=== PATIENT | male | born 1980 | race African-American/Black ===

== ENCOUNTER 2023-09-01 02:29 | Observation (INO) ==
--- NOTE | 2023-09-01 02:50 | Emergency Department Note ---
History of Present Illness General Chief complaint: Hypertension Stated complaint: HEADACHE AND HIGH BP Time Seen by Provider: 09/01/23 02:43 History of Present Illness Maximum Pain Intensity: 3 This 42-year-old male that was seen here earlier today return to the ER for ongoing hypertension and headache. Patient denies chest pain, dyspnea, numbness, tingling or any other medical complaints. Patient had laboratory testing and CAT scan earlier. Home Medications Medication Instructions Recorded Confirmed Type atorvastatin 20 mg tablet 20 mg PO HS 06/14/22 09/01/23 History metformin 500 mg tablet,extended 1,000 mg PO HS 06/14/22 09/01/23 History release 24 hr amlodipine 5 mg-benazepril 20 mg 1 cap PO DAILY #30 caps 08/31/23 09/01/23 Rx capsule Allergies Allergy/AdvReac Type Severity Reaction Status Date / Time grass pollen-perennial rye, Allergy Intermediate hives Verified 08/31/23 20:43 standar Past Med/Surg History Problem List (Updated 09/01/23 @ 02:50 by Nicole Manzanares PA-C) Rhinovirus infection (Acute) Hypertension (Chronic) Prediabetes Closed fracture of fifth metatarsal bone of left foot (Acute) Social History Smoking Status: Never smoker Preferred Language: Dominican Feels Safe at Home: Yes Review of Systems A total of 10 systems reviewed and were otherwise negative Physical Exam Vital Signs Vital Signs - 24 hr 09/01/23 02:37 09/01/23 02:52 09/01/23 02:58 Temperature 36.6 C Temperature Source Temporal Artery Scan Pulse Rate 96 H 88 Pulse Rate [Apical] 95 H Pulse Rate from SpO2 Sensor Pulse Rhythm [Apical] Regular Respiratory Rate 18 17 Respiratory Effort / Characteristics Non-Labored Spontaneous Non-Labored Spontaneous Respiratory Depth Normal Normal Respiratory Pattern Regular Regular Blood Pressure 175/134 H Blood Pressure [Right Arm] 148/116 H Blood Pressure Mean 147 Blood Pressure Mean [Right Arm] 126 Blood Pressure Position [Right Arm] Sitting Pulse Oximetry 96 96 Oxygen Delivery Method Room Air Room Air Sepsis Recent Fever Within 48 Hours No Sepsis New/Unexplained Change in Mental Status N/A Sepsis Action Taken by Nursing No Action Required 09/01/23 03:00 Temperature Temperature Source Pulse Rate 92 H Pulse Rate [Apical] Pulse Rate from SpO2 Sensor 92 H Pulse Rhythm [Apical] Respiratory Rate 17 Respiratory Effort / Characteristics Respiratory Depth Respiratory Pattern Blood Pressure 172/131 H Blood Pressure [Right Arm] Blood Pressure Mean 144 Blood Pressure Mean [Right Arm] Blood Pressure Position [Right Arm] Pulse Oximetry 94 Oxygen Delivery Method Room Air Sepsis Recent Fever Within 48 Hours Sepsis New/Unexplained Change in Mental Status Sepsis Action Taken by Nursing VITALS: Vitals are noted on the nurse's note and reviewed by myself. Vital signs hypertensive GENERAL: Pleasant gentleman, in no acute distress, nondiaphoretic, well- developed well-nourished. SKIN: Capillary reflex less than 2 seconds. HEENT: Normocephalic. PERRLA. EOMI. Nares patent. Mucous membranes moist. Neck is supple without nuchal rigidity. HEART: Regular rate and rhythm LUNGS: Clear to auscultation bilaterally without wheezes, rales or rhonchi. No retractions or accessory muscle use. ABDOMEN: Positive bowel sounds x 4. Normal tympanic percussion. Soft, nontender, without masses or organomegaly. Prince sign negative. No guarding or rebound tenderness. no CVA tenderness MUSCULOSKELETAL: No gross musculoskeletal defects. NEURO: Patient was alert and oriented to person place and time. No focal neurological deficits. Medical Decision Making Medical Records Attestation: I reviewed the patient's medical records. Home Medications Current Medication List: was personally reviewed by me Laboratory Data Attestation: I reviewed the patient's lab results. Imaging Data Attestation: I personally reviewed and interpreted this imaging study as follows: MDM Narrative Prior records/ancillary studies reviewed regarding the history above. Triage Nursing notes reviewed. Additional history obtained from family The patient's history was concerning for hypertension. Differential diagnosis: Etiologies such as benign hypertension, hypertensive emergency, cardiovascular pathology, pheochromocytoma, electrolyte abnormality, renal disease, endorgan damage, as well as others were entertained. Physical examination: As above. No signs of end organ damage. ER treatment provided: An order was placed for continuous cardiac monitoring. The monitor shows a rate of 60-100 with a sinus rhythm per my interpretation. Hydralazine On reassessment the patient felt better. Diagnostic interpretation by me: The electrocardiogram was ordered for HTN ECG: Normal sinus, normal intervals, no acute ST-T wave changes. Impression normal sinus rhythm independent turbid by myself The labs Independently Interpreted by myself revealed stable H&H from earlier Imaging studies: Head CT was negative from earlier Consultation: A consultation was placed with the hospitalist. The case was discussed and diagnostics were reviewed. The patient was evaluated in the ER for further treatment. This appears to be consistent with hypertensive urgency. Patient was just here and came back as his blood pressure still elevated having a headache. Labs and imaging were negative from earlier. Medicine was consulted and the case was discussed. He will be admitted to the medical service for further evaluation and workup.. By the evaluation outlined above emergent etiologies such as hypertensive emergency, pheochromocytoma, endorgan damage, cardiac ischemia, aortic dissection, pulmonary embolism, pneumonia, pneumothorax, infections, gastrointestinal, as well as others were deemed relatively unlikely. The pt informed about the findings as listed above. All questions were answered and pleased with the treatment. The chart was completed utilizing Dtime Speech voice recognition software. Grammatical errors, random word insertions, pronoun errors, and incomplete sentences are an occassional consequence of this system due to software limitations, ambient noise, and hardware issues. Any formal questions or concerns about the content, text, or information contained within the body of this dictation should be directly addressed to the physician kindergarten assistant for clarification. Impression & Plan Hypertension Discharge Plan Visit Data Chief Complaint: Hypertension Stated Complaint: HEADACHE AND HIGH BP ED Provider: Sharon Nava ED Midlevel Provider: Nicole Manzanares Discharge Problem: Hypertension Patient Disposition: Being Evaluated by Hospitalist Condition: Good Forms Stand Alone Forms: My [facility] Prescriptions Prescriptions: No Action atorvastatin 20 mg tablet 20 mg PO HS metformin 500 mg tablet extended release 24 hr 1,000 mg PO HS amlodipine-benazepril 5-20 mg capsule 1 cap PO DAILY Qty: 30 0RF Referrals Referrals: Nilson Morales MD [Primary Care Provider] - Discharge Problem: Hypertension Qualifiers: Hypertension type: unspecified Qualified Code(s): I10 - Essential (primary) hypertension
[2023-09-01] MEDS: hydrALAZINE HCL 20 MG/ML VIAL IV STA (03:16)
[2023-09-01] MEDS: ONDANSETRON INJ 2 MG/ML 2 ML VIAL IV STA (04:12)
--- NOTE | 2023-09-01 05:26 | History & Physical Report ---
Date of Service September 01, 2023 Assessment & Plan (1) Hypertensive urgency: Plan: 42-year-old male with past medical history significant for prediabetes, obstructive sleep apnea noncompliant with CPAP, hypertension, morbid obesity, generalized anxiety disorder ran out of his blood pressure medication for last 2 weeks and came to the ER because of elevated blood pressure and headaches. Patient was in the ER earlier with headaches and elevated blood pressure and not taking his blood pressure medication for last 2 weeks. 10 mg of p.o. amlodipine was given and his home medication prescription of Benazepril and amlodipine 5/20 mg was sent to pharmacyhis headache improved and his CT head was okay was sent home. After going home the headaches came back and his blood pressure still high so he came back. Currently received a dose of IV hydralazine and his blood pressure improved and headaches improved. Resting comfortably. Incidentally also found to have rhinovirus infection, but patient denies any symptoms. No blurred visions, no earache, no runny nose, no sore throat, no cough, no fevers. No body aches. Appetite is okay. No chest pain or shortness of breath. No nausea. No abdominal pain. Normal bowel and bladder movements. Current resting comfortably. hypertensive urgency not take his home medications since last 2 weeks as he ran out of his prescription will start this home medication benazepril/amlodipine IV labetalol as needed will follow echo close monitor headaches mostly from above currently resolved obstructive sleep apnea could not tolerate CPAP needs follow-up prediabetes hold metformin HbA1c levels sliding scale morbid obesity needs counseling follow-up with nutrition and PCP hyperlipidemia on statin DVT prophylaxis SCDs for now disposition med/telemetry full code History of Present Illness Chief Complaint: hypertensive urgency and headaches Primary Care Provider: Nilson Morales MD 42-year-old male with past medical history significant for prediabetes, obstructive sleep apnea noncompliant with CPAP, hypertension, morbid obesity, generalized anxiety disorder ran out of his blood pressure medication for last 2 weeks and came to the ER because of elevated blood pressure and headaches. Patient was in the ER earlier with headaches and elevated blood pressure and not taking his blood pressure medication for last 2 weeks. 10 mg of p.o. amlodipine was given and his home medication prescription of Benazepril and amlodipine 5/20 mg was sent to pharmacyhis headache improved and his CT head was okay was sent home. After going home the headaches came back and his blood pressure still high so he came back. Currently received a dose of IV hydralazine and his blood pressure improved and headaches improved. Resting comfortably. Incidentally also found to have rhinovirus infection, but patient denies any symptoms. No blurred visions, no earache, no runny nose, no sore throat, no cough, no fevers. No body aches. Appetite is okay. No chest pain or shortness of breath. No nausea. No abdominal pain. Normal bowel and bladder movements. Current resting comfortably. Past med history. As mentioned above. Past surgical history. Dental surgery. Inguinal hernia repair. Umbilical hernia repair. Vasectomy. Social history. . No smoking. Alcohol rarely. No drug use. Family history. Mother has arthritis. Glaucoma. Father has hypertension. Stroke. Allergies Allergy/AdvReac Type Severity Reaction Status Date / Time grass pollen-perennial rye, Allergy Intermediate hives Verified 08/31/23 20:43 standar Home Medications Medication Instructions Recorded Confirmed Type atorvastatin 20 mg tablet 20 mg PO HS 06/14/22 09/01/23 History metformin 500 mg tablet,extended 1,000 mg PO HS 06/14/22 09/01/23 History release 24 hr amlodipine 5 mg-benazepril 20 mg 1 cap PO DAILY #30 caps 08/31/23 09/01/23 Rx capsule Past Med/Surg History Problem List (Updated 09/01/23 @ 05:22 by Cornell Motley MD) Hypertensive urgency Rhinovirus infection (Acute) Hypertension (Chronic) Prediabetes Closed fracture of fifth metatarsal bone of left foot (Acute) Social History Smoking Status: Former smoker Tobacco Type: Cigars Second Hand Exposure: No; Do You Dip or Chew Tobacco: No; Hx Alcohol Use: Yes Alcohol type: beer, wine and hard liquor Hx Substance Use: No Preferred Language: Belarusian Communication Ability: Effective Cargo Worker Required: No Beliefs That Will Affect Care: None Current Living Situation: Spouse and Family Feels Safe at Home: Yes Safety Concerns: Feels Safe At This Time Assistive Devices: None Review of Systems Review of Systems: All systems reviewed & are unremarkable except as noted in HPI & below Physical Exam Physical Exam: General- Not in distress Head- atraumatic Eyes- PERRL. ENT- oropharynx clear Neck- supple, no JVD. Lungs- clear to auscultation no wheezing or crackles. Heart- regular rate and rhythm; no murmur, no gallop. Abdomen- normal bowel sounds, soft, nontender, no distension. Extremities- no pretibial edema, no erythema seen. Neuro- alert, oriented PERRL, no facial palsy; no dysarthria; moves extremities. Results & Data Results & Data Vital Signs (Past 12 Hours) Vital Signs Temp Pulse Pulse Resp BP BP Pulse Ox 09/01/23 04:01 97 H 15 146/101 H 96 09/01/23 03:45 104 H 15 161/100 H 96 09/01/23 03:30 94 H 18 158/117 H 93 09/01/23 03:30 92 H 16 158/117 H 96 09/01/23 03:19 93 H 16 161/120 H 96 09/01/23 03:15 85 14 161/120 H 96 09/01/23 03:15 85 15 161/120 H 96 09/01/23 03:00 92 H 17 172/131 H 94 09/01/23 02:58 88 09/01/23 02:52 95 H 17 148/116 H 96 09/01/23 02:37 36.6 C 96 H 18 175/134 H 96 O2 Del Method 09/01/23 04:01 Room Air 09/01/23 03:45 Room Air 09/01/23 03:30 Room Air 09/01/23 03:30 Room Air 09/01/23 03:19 Room Air 09/01/23 03:15 Room Air 09/01/23 03:15 Room Air 09/01/23 03:00 Room Air 09/01/23 02:58 09/01/23 02:52 Room Air 09/01/23 02:37 Room Air ECG Additional Comments: ECG. Normal sinus rhythm At rate of 88.. No significant change was found. Code Status & VTE Plan VTE Prophylaxis Plan VTE Prophylaxis will be ordered: Yes
[2023-09-01] MEDS ORDERED: GLUCOSE 10 TAB/TUBE PO PRN (08:17)
[2023-09-01] MEDS ORDERED: ACETAMINOPHEN 325 MG TAB PO PRN (08:17)
[2023-09-01] MEDS ORDERED: GLUCAGON FOR INJ 1 MG VIAL SQ PRN (08:17)
[2023-09-01] MEDS ORDERED: CARBOHYDRATES FOR HYPOGLYCEMIA PO PRN (08:17)
[2023-09-01] MEDS ORDERED: ONDANSETRON INJ 2 MG/ML 2 ML VIAL IV PRN (08:17)
[2023-09-01] MEDS ORDERED: NITROGLYCERIN SL 0.4 MG/TAB TAB SL PRN (08:17)
[2023-09-01] MEDS ORDERED: DEXTROSE 50% 50 ML SYRINGE IV PRN (08:17)
[2023-09-01] MEDS ORDERED: GLUCOSE 40% GEL 15 GM TUBE PO PRN (08:17)
[2023-09-01] MEDS ORDERED: LABETALOL HCL IV 5 MG/ML 20ML IV PRN (08:17)
[2023-09-01] MEDS: METOPROLOL TARTRATE 1 MG/ML VIAL IV STA (08:49)
[2023-09-01 09:41] LABS: Basophils # (auto) 0.03 K/uL (0.00-0.20); Basophils % (auto) 0.4 %; Eosinophils # (auto) 0.06 K/uL (0.00-0.50); Eosinophils % (auto) 0.8 %; Hematocrit (blood only) 46.7 % (42.0-52.0); Hemoglobin 15.1 g/dl (14.0-18.0); Immature Granulocytes # (auto) 0.02 K/uL (0.01-0.20); Immature Granulocytes % (auto) 0.3 %; Lymphocytes # (auto) 0.99 K/uL (1.20-3.40); Lymphocytes % (auto) 12.5 %; Mean Corpuscular Hemoglobin 25.3 pg (25.0-34.0); Mean Corpuscular Hgb Conc 32.3 g/dL (32.0-36.0); Mean Corpuscular Volume 78.1 fL (80.0-100.0); Mean Platelet Volume 10.2 fL (9.4-12.4); Monocytes # (auto) 0.49 K/uL (0.11-0.59); Monocytes % (auto) 6.2 %; Neutrophils # (auto) 6.35 K/uL (1.40-6.50); Neutrophils % (auto) 79.8 %; Platelet Count 296 K/uL (130-400); RDW Coefficient of Variation 14.8 % (11.5-14.5); RDW Standard Deviation 40.6 fL (36.4-46.3); Red Blood Count 5.98 M/uL (4.70-6.10); White Blood Count 7.94 K/ul (4.8-10.8)
[2023-09-01 09:45] LABS: Estimated Average Glucose 137 mg/dl; Hemoglobin A1C 6.4 % (4.5-5.6)
[2023-09-01 09:52] LABS: BUN Creatinine Ratio 13.8 (10-20); Calcium 9.4 mg/dl (8.6-10.3); Creatinine Clr Calc Pharmacy 142.6 ml/min; Est GFR (African American) 121.7 ml/min; Magnesium 1.9 mg/dl (1.7-2.4); Potassium 3.8 mmol/L (3.5-5.1)
[2023-09-01] MEDS: INSULIN ASPART PER UNIT CHARGE SC SCH (10:21)
[2023-09-01] MEDS: ENALAPRIL MALEATE 10 MG TAB PO SCH (10:36)
[2023-09-01] MEDS: amLODIPine BESYLATE 5 MG TAB PO SCH (10:36)
[2023-09-01] MEDS: METOPROLOL TARTRATE 50 MG TAB PO SCH (10:36)
--- NOTE | 2023-09-01 13:04 | Electrocardiogram Report ---
Test Reason : Blood Pressure : / mmHG Vent. Rate : 088 BPM Atrial Rate : 088 BPM P-R Int : 178 ms QRS Dur : 092 ms QT Int : 358 ms P-R-T Axes : 055 012 040 degrees QTc Int : 433 ms Normal sinus rhythm Nonspecific ST abnormality Abnormal ECG When compared with ECG of 31-AUG-2023 16:55, (unconfirmed) No significant change was found Confirmed by Forest Lazo ([id number]) on 09/01/2023 1:04:24 PM Referred By: REFERRED SELF Confirmed By:Forest Lazo
--- NOTE | 2023-09-01 17:01 | Hospitalist Progress Note ---
Date of Service September 01, 2023 Assessment & Plan (1) Hypertensive urgency: Plan: 42-year-old male with past medical history significant for prediabetes, obstructive sleep apnea noncompliant with CPAP, hypertension, morbid obesity, generalized anxiety disorder ran out of his blood pressure medication for last 2 weeks and came to the ER because of elevated blood pressure and headaches. Patient was in the ER earlier with headaches and elevated blood pressure and not taking his blood pressure medication for last 2 weeks. 10 mg of p.o. amlodipine was given and his home medication prescription of Benazepril and amlodipine 5/20 mg was sent to pharmacyhis headache improved and his CT head was okay was sent home. After going home the headaches came back and his blood pressure still high so he came back. Currently received a dose of IV hydralazine and his blood pressure improved and headaches improved. Resting comfortably. Incidentally also found to have rhinovirus infection, but patient denies any symptoms. No blurred visions, no earache, no runny nose, no sore throat, no cough, no fevers. No body aches. Appetite is okay. No chest pain or shortness of breath. No nausea. No abdominal pain. Normal bowel and bladder movements. Current resting comfortably. Hypertensive urgency not take his home medications since last 2 weeks as he ran out of his prescription will start this home medication benazepril/amlodipine IV labetalol as needed will follow echo Blood pressure noted to be very high and intravenous metoprolol 5 mg was given and Lopressor 50 mg twice daily was started His blood pressure has been improving as of this afternoon and the symptoms are getting better Headaches Secondary to very high blood pressure resolved subsequently Obstructive sleep apnea Could not tolerate CPAP Needs follow-up Prediabetes hold metformin HbA1c levels sliding scale Morbid obesity needs counseling follow-up with nutrition and PCP Hyperlipidemia on statin DVT prophylaxis SCDs for now disposition med/telemetry full code Admission and Anticipated Discharge Date Admission Date: September 01, 2023 Subjective 09/01/2023 The patient was seen and examined in medical telemetry unit He has been feeling much better since admission Denies any headache, any neurological symptoms Does not have any chest pain and/or palpitation or shortness of breath Review of Systems Review of Systems: All systems reviewed and unremarkable except as noted below Physical Exam Physical Exam: Lying in bed without any acute distress Constitutional: well developed, well nourished, + ill appearing and + obese Eyes: PERRL, conjunctivae normal, anicteric sclerae ENMT: external ear and nose normal, oropharynx normal Neck: trachea midline, no thyromegaly Respiratory: no respiratory distress Auscultation: lungs clear to auscultation bilaterally Cardiovascular: Rate/Rhythm: regular rate and regular rhythm; not tachycardic Heart Sounds: normal S1 and normal S2; no murmur Extremities: no edema Gastrointestinal (Abdomen): Inspection/Auscultation: normal bowel sounds; abdomen not distended Percussion/Palpation: abdomen soft; abdomen nontender Musculoskeletal: No acute arthritis involving any of the joints Neurologic: normal touch/pain/proprioception and moves all extremities; no focal motor deficits Psychiatric: A+Ox3, euthymic affect Results & Data Results & Data Vital Signs (Past 12 Hours) Vital Signs Temp Pulse Pulse Resp BP BP Pulse Ox 09/01/23 16:06 36.9 C 86 18 133/85 95 09/01/23 15:48 82 09/01/23 11:49 09/01/23 10:17 94 H 149/101 H 09/01/23 08:49 102 H 144/109 H 09/01/23 08:44 102 H 18 144/109 H 93 09/01/23 06:45 106 H 21 134/111 H 95 09/01/23 06:35 105 H 09/01/23 06:30 111 H 22 138/97 94 09/01/23 06:15 114 H 19 134/102 H 94 09/01/23 06:00 101 H 20 136/102 H 94 09/01/23 05:45 101 H 21 141/105 H 94 09/01/23 05:30 101 H 19 139/105 H 93 09/01/23 05:15 94 H 19 137/102 H 94 O2 Del Method 09/01/23 16:06 Room Air 09/01/23 15:48 09/01/23 11:49 Room Air 09/01/23 10:17 09/01/23 08:49 09/01/23 08:44 Room Air 09/01/23 06:45 Room Air 09/01/23 06:35 09/01/23 06:30 Room Air 09/01/23 06:15 Room Air 09/01/23 06:00 Room Air 09/01/23 05:45 Room Air 09/01/23 05:30 Room Air 09/01/23 05:15 Room Air Laboratory Results Short CBC 09/01/23 Range/Units 09:07 WBC 7.94 (4.8-10.8) K/ul Hgb 15.1 (14.0-18.0) g/dl Hct 46.7 (42.0-52.0) % Plt Count 296 (130-400) K/uL BMP 09/01/23 09:07 Sodium 139 Potassium 3.8 Chloride 107 Carbon Dioxide 24 BUN 12 Creatinine 0.87 Glucose 134 H Calcium 9.4 Medications Administered Current Inpatient Medications Acetaminophen (Acetaminophen 325 Mg Tab) 650 mg PO Q4H PRN PRN Reason: Pain or Fever Stop: 10/01/23 08:16 Amlodipine Besylate (Amlodipine Besylate 5 Mg Tab) [facility] Stop: 10/01/23 08:59 Last Admin: 09/01/23 10:36 Dose: 5 mg Atorvastatin Calcium (Atorvastatin 20 Mg Tab) 20 mg PO HS [facility] Stop: 10/01/23 20:59 Dextrose (Dextrose 50% 50 Ml Syringe) 25 - 50 ml IV UD PRN; Protocol PRN Reason: Hypoglycemia Protocol Stop: 10/01/23 08:16 Enalapril Maleate (Enalapril Maleate 10 Mg Tab) 20 mg PO QAM [facility] Stop: 10/01/23 08:59 Last Admin: 09/01/23 10:36 Dose: 20 mg Glucagon (Glucagon For Inj 1 Mg Vial) 1 mg SQ UD PRN; Protocol PRN Reason: Hypoglycemia Protocol Stop: 10/01/23 08:16 Glucose (Glucose 40% Gel 15 Gm Tube) 15 - 30 gm PO UD PRN; Protocol PRN Reason: Hypoglycemia Protocol Stop: 10/01/23 08:16 Glucose (Glucose 10 Tab/Tube) 4 - 8 tab PO UD PRN; Protocol PRN Reason: Hypoglycemia Treatment Stop: 10/01/23 08:16 Insulin Aspart (Insulin Aspart Per Unit Charge) 0 units SC [facility] Stop: 10/01/23 08:16 Last Admin: 09/01/23 17:39 Dose: Not Given Labetalol HCl (Labetalol Hcl Iv 5 Mg/Ml 20ml) 10 mg IV Q4H PRN PRN Reason: Hypertension Stop: 10/01/23 08:16 Metoprolol Tartrate (Metoprolol Tartrate 50 Mg Tab) 50 mg PO BID [facility] Stop: 10/01/23 08:59 Last Admin: 09/01/23 10:36 Dose: 50 mg Miscellaneous (Carbohydrates For Hypoglycemia ) 15 - 30 gm PO UD PRN PRN Reason: Hypoglycemia Protocol Stop: 10/01/23 08:16 Nitroglycerin (Nitroglycerin Sl 0.4 Mg/Tab Tab) 0.4 mg SL Q5M PRN PRN Reason: Chest Pain Stop: 10/01/23 08:16 Ondansetron HCl (Ondansetron Inj 2 Mg/Ml 2 Ml Vial) 4 mg IV Q6H PRN PRN Reason: Nausea Stop: 10/01/23 08:16
[2023-09-01] MEDS: ATORVASTATIN 20 MG TAB PO SCH (20:42)
--- OUTSIDE RECORDS SUMMARY | 2023-09-02 07:14 | External Medical Summary | Summary of Care ---
Author Name Unknown Organization [facility] Address [address] [place] [address] Phone [phone] Care Team Providers Care Slate Cutter Operator Name Role Phone Andrew CONNER MD, Nilson Mcdaniel Primary Care Provider [phone] Reason for Visit * Reason Onset Date Comments Advice 08/31/2023 High BP Encounter Details Date Type Department Care Team (Late st Contact Info) Description 08/31/2023 Telephone Family Practice [facility] [address] [place] [address] Nilson Morales III, MD [address] [place] [address] Advice (High BP) Allergies Active Allergy Reactions Criticality Noted Date Comments Joe Grass Pollen Allergen High 03/30/2015 Other reaction(s): hives documented as of this encounter (statuses as of 08/31/2023) Medications Medication Sig Dispensed Refills Start Date End Date Status [place]-3 Fatty Acids (FISH OIL) 1200 MG CAPS Take 2 Caps by mouth daily. Active One-A-Day Mens Oral Tablet Take 1 Tablet by mouth in the morning. Active Turmeric 500 MG Oral Capsule Take 1 Capsule by mouth in the morning. Active Collagen Ultra Oral Capsule Take by mouth. Active Naproxen 500 MG Oral Tablet (Naprosyn) Take 1 Tablet by mouth 2 times a day with morning and evening meals. With food 14 Tablet 1 07/15/2022 Active Atorvastatin Calcium 20 MG Oral Tablet (Lipitor)Indications: Screening for lipoid disorders Take 1 Tablet by mouth at bedtime. 90 Tablet 3 07/27/2022 Active metFORMIN HCl ER 500 MG Oral Tablet Extended Release 24 Hour (Glucophage XR)Indications:Predia betes TAKE 2 TABLETS BY MOUTH EVERY MORNING 180 Tablet 06/15/2023 Active amLODIPine Besy-Benazepril HCl 5-20 MG Oral Capsule (Lotrel)Indications:E ssential hypertension with goal blood pressure less than 140/90 TAKE 1 CAPSULE BY MOUTH EVERY DAY AT BEDTIME 90 Capsule 07/31/2023 Active documented as of this encounter (statuses as of 08/31/2023) Active Problems Problem Noted Date Diagnosed Date Morbid obesity due to excess calories 02/24/2022 Body mass index (BMI) of 40.0 to 44.9 in adult 0 07/19/2021 Overview: Per Obesity protocol - Per Obesity protocol - Elevated ferritin 03/01/2021 BRIAN (generalized anxiety disorder) 03/11/2020 Prediabetes 09/05/2017 Essential hypertension with goal blood pressure less than 140/90 11/10/2015 AKSHAT (obstructive sleep apnea) 08/28/2015 Overview: CPAP 9-15 cwp HST 02/02/15 - TERA 33.7 DHC documented as of this encounter (statuses as of 08/31/2023) Resolved Problems Problem Noted Date Diagnosed Date Resolved Date Type 2 diabetes mellitus without complication 04/28/19 23 04/28/2022 Body mass index (BMI) of 45. 0 to 49.9 in adult 09/22/2020 07/22/2021 Overview: Per Obesity protocol - Body mass index (BMI) of 40. 0 to 44.9 in adult 09/19/2017 09/24/2020 Overview: Per Obesity protocol #1 HTN, age 0-18 06/23/2015 11/10/2015 documented as of this encounter (statuses as of 08/31/2023) Immunizations Name Administration Dates Next Due COVID-19 mRNA, LNP-s, No Pre serve, 2-Dose Series (Pfizer) 03/01/2021,07/15/2020,06/23/2020 DTaP Dipth/Tet/Acell Pertussis (Infanrix), Peds 05/08/1980,04/15/1979,02/28/1979, 979 Hepatitis B, 0-19 yrs 12/09/1994,07/09/1994,04/1994 IPV - Polio Virus Vaccine (Inact) 1980,04/25/1979,02/28/1979, 979 MMR - Measles/Mumps/Rubella Vaccine 04/08/1997,1 Seasonal Influenza, PF, 6 M & above, IM , (FluLaval or Fluzone) 01/27/2020 TD - Tetanus/Diptheria (ADULT) 04/08/1997 TDAP (age 10 and older)(Boostrix) 05/11/2015 documented as of this encounter Social History Tobacco Use Types Packs/Day Years Used Date Smoking Tobacco: Never Smokeless Tobacco: Never Alcohol Use Standard Drinks/Week Comments Yes 0 (1 standard drink = 0.6 oz pur e alcohol) Rare PHQ-2 Answer Date Recorded PHQ Adult Total Score 1 06/25/2021 Sex and Gender Information Value Date Recorded Sex Assigned at Male 08/03/2023 11:17 AM EDT Gender Identity Male 08/03/2023 11:17 AM EDT Sexual Orientation Straight 08/03/2023 11 :17 AM EDT Job Start Date Occupation Industry Not on file Not on file Not on file documented as of this encounter Miscellaneous Notes * Telephone Encounter - Sanjuanita Castillo LPN - 08/31/2023 4:33 PM EDT Just seeing this message now. Reviewed [facility] to see if patient presented to ED. He is currently at [facility]. * Telephone Encounter - Kari Lee OSA - 08/31/2023 3:32 PM EDT Pt.'s Roberta has called In requesting upon speaking with the Nurse wants to know whether she should take him to the hospital or not hour ago had a headache got something to drink got tired wanted to take a nap was cold & sweaty when she touched him cold BP was high 181/120, heart rate is high as well. Did try to send to nurses line was told to send to master motorcycle technician then was told to send to Roberta fleming then decided she will take the pt. To the hospital please advise. documented in this encounter Plan of Treatment Health Maintenance Due Date Last Done Comments Pneumococcal Vaccine: Pediatrics (0 to 5 Years) and At-Risk Patients (6 to 64 Years) (1 of 2 - PCV) 1984 Depression Screening 06/25/2022 06/25/2021 COVID-19 Vaccine ( - season) 2022 03/01/2021, 07/15/2020, 06/23/2020 GFR 12/18/2022 12/18/2021, 07/2021, 04/23/2021, Additional history exists HbA1c 04/28/2023 04/28/2022, 12/09, 07/12/2021, Additional history exists Influenza Vaccine (FLU shot) (Season Ended) 2023 01/27/2020 Albumin/Creatinine Ratio 04/28/2025 04/28/2022 DTaP,Tdap,and Td Vaccines (7 - Td or Tdap) 05/11/2025 05/11/2015, 04/08/1997, 05/08/1980, Additional history exists Lipid Panel 06/14/2026 06/14/2021, 01/08, 04/02/2019, Additional history exists Hepatitis B Completed 12/09/1994, 0 04/1994, 05/11/1994 Diabetic Eye Exam Discontinued 01/11/2022 GARDASIL-HPV IMMUNIZATION SERIES Aged Out No longer eligible based on patient's age to complete this topic MENINGOCOCCAL (MENACTRA/MENVEO) Aged Out No longer eligible based on patient's age to complete this topic documented as of this encounter Medical Devices Not on filedocumented as of this encounter Additional Health Concerns Infection Onset Date Last Indicated Resolved Time COVID-19 (confirmed) 09/18/2021 09/18/2021 documented as of this encounter Care Teams Slate Cutter Operator Relationship Specialty Start Date End Date Nilson Morales III, MD [address] [place] [address] PCP - General Family Medicine 05/11/15 documented as of this encounter
[2023-09-02 07:54] LABS: Basophils # (auto) 0.03 K/uL (0.00-0.20); Basophils % (auto) 0.4 %; Eosinophils % (auto) 2.8 %; Hematocrit (blood only) 45.2 % (42.0-52.0); Hemoglobin 14.8 g/dl (14.0-18.0); Immature Granulocytes # (auto) 0.02 K/uL (0.01-0.20); Immature Granulocytes % (auto) 0.3 %; Lymphocytes # (auto) 2.22 K/uL (1.20-3.40); Lymphocytes % (auto) 31.1 %; Mean Corpuscular Hemoglobin 25.2 pg (25.0-34.0); Mean Corpuscular Hgb Conc 32.7 g/dL (32.0-36.0); Mean Corpuscular Volume 76.9 fL (80.0-100.0); Mean Platelet Volume 9.9 fL (9.4-12.4); Monocytes # (auto) 0.87 K/uL (0.11-0.59); Monocytes % (auto) 12.2 %; Neutrophils # (auto) 3.79 K/uL (1.40-6.50); Neutrophils % (auto) 53.2 %; Platelet Count 286 K/uL (130-400); RDW Coefficient of Variation 14.7 % (11.5-14.5); Red Blood Count 5.88 M/uL (4.70-6.10); White Blood Count 7.13 K/ul (4.8-10.8)
[2023-09-02 08:01] LABS: BUN Creatinine Ratio 13.1 (10-20); Calcium 9.3 mg/dl (8.6-10.3); Creatinine Clr Calc Pharmacy 125.2 ml/min; Est GFR (African American) 106.9 ml/min; Est GFR (Non-African American) 92.2 ml/min; Magnesium 1.9 mg/dl (1.7-2.4); Potassium 3.8 mmol/L (3.5-5.1)
--- NOTE | 2023-09-02 12:05 | Hospitalist Progress Note ---
Date of Service September 02, 2023 Assessment & Plan (1) Hypertensive urgency: Plan: 42-year-old male with past medical history significant for prediabetes, obstructive sleep apnea noncompliant with CPAP, hypertension, morbid obesity, generalized anxiety disorder ran out of his blood pressure medication for last 2 weeks and came to the ER because of elevated blood pressure and headaches. Patient was in the ER earlier with headaches and elevated blood pressure and not taking his blood pressure medication for last 2 weeks. 10 mg of p.o. amlodipine was given and his home medication prescription of Benazepril and amlodipine 5/20 mg was sent to pharmacyhis headache improved and his CT head was okay was sent home. After going home the headaches came back and his blood pressure still high so he came back. Currently received a dose of IV hydralazine and his blood pressure improved and headaches improved. Resting comfortably. Incidentally also found to have rhinovirus infection, but patient denies any symptoms. No blurred visions, no earache, no runny nose, no sore throat, no cough, no fevers. No body aches. Appetite is okay. No chest pain or shortness of breath. No nausea. No abdominal pain. Normal bowel and bladder movements. Current resting comfortably. Hypertensive urgency Not take his home medications since last 2 weeks as he ran out of his prescription Will start this home medication benazepril/amlodipine IV labetalol as needed Echo of the heart showed-constricted LVH without any wall motion abnormalities, hyperdynamic ventricle with EF more than 70%, RV is normal size and function there is no significant valvular pathologies and grade 1 diastolic dysfunction Blood pressure noted to be very high and intravenous metoprolol 5 mg was given and Lopressor 50 mg twice daily was started His blood pressure has been improving as of this afternoon and the symptoms are getting better Blood pressure remains stable He will be discharged home this afternoon with current medications of blood pressure Headaches Secondary to very high blood pressure resolved subsequently Denies any more headache Obstructive sleep apnea Could not tolerate CPAP Needs follow-up Prediabetes Hold metformin HbA1c levels-mildly elevated at 6.4 Has been on sliding scale Morbid obesity Needs counseling Follow-up with nutrition and PCP Hyperlipidemia on statin DVT prophylaxis SCDs for now disposition med/telemetry full code Will be discharged home this afternoon Admission and Anticipated Discharge Date Admission Date: September 01, 2023 Subjective 09/01/2023 The patient was seen and examined in medical telemetry unit He has been feeling much better since admission Denies any headache, any neurological symptoms Does not have any chest pain and/or palpitation or shortness of breath 09/02/2023 The patient was seen and examined in medical telemetry unit He has been feeling much better The blood pressure seems to be reasonably controlled Denies any symptoms related to high blood pressure, any palpitation or chest pain, no abdominal pain nausea no vomiting He has been ambulating without any difficulties and ready to be discharged Review of Systems Review of Systems: All systems reviewed and unremarkable except as noted below Physical Exam Physical Exam: Lying in bed without any acute distress Constitutional: well developed, well nourished, + ill appearing and + obese Eyes: PERRL, conjunctivae normal, anicteric sclerae ENMT: external ear and nose normal, oropharynx normal Neck: trachea midline, no thyromegaly Respiratory: no respiratory distress Auscultation: lungs clear to auscultation bilaterally Cardiovascular: Rate/Rhythm: regular rate and regular rhythm; not tachycardic Heart Sounds: normal S1 and normal S2; no murmur Extremities: no edema Gastrointestinal (Abdomen): Inspection/Auscultation: normal bowel sounds; abdomen not distended Percussion/Palpation: abdomen soft; abdomen nontender Musculoskeletal: All systems reviewed and are unremarkable except as noted below Neurologic: normal touch/pain/proprioception and moves all extremities; no focal motor deficits Psychiatric: A+Ox3, euthymic affect Lymphatic: no cervical or axillary lymphadenopathy Results & Data Results & Data Vital Signs (Past 12 Hours) Vital Signs Temp Pulse Pulse Resp BP Pulse Ox O2 Del Method 09/02/23 11:42 37.1 C 75 18 173/97 H 95 Room Air 09/02/23 07:31 65 09/02/23 07:29 37.1 C 73 18 132/87 96 Room Air 09/02/23 03:53 37.1 C 82 16 135/89 91 Room Air Laboratory Results Short CBC 09/02/23 Range/Units 07:23 WBC 7.13 (4.8-10.8) K/ul Hgb 14.8 (14.0-18.0) g/dl Hct 45.2 (42.0-52.0) % Plt Count 286 (130-400) K/uL [facility] 09/02/23 07:23 Sodium 138 Potassium 3.8 Chloride 106 Carbon Dioxide 25 BUN 13 Creatinine 0.99 Glucose 120 H Calcium 9.3 Medications Administered Current Inpatient Medications Acetaminophen (Acetaminophen 325 Mg Tab) 650 mg PO Q4H PRN PRN Reason: Pain or Fever Stop: 10/01/23 08:16 Amlodipine Besylate (Amlodipine Besylate 5 Mg Tab) 5 mg PO QAM [facility] Stop: 10/01/23 08:59 Last Admin: 09/02/23 09:24 Dose: 5 mg Atorvastatin Calcium (Atorvastatin 20 Mg Tab) 20 mg PO HS [facility] Stop: 10/01/23 20:59 Last Admin: 09/01/23 20:42 Dose: 20 mg Dextrose (Dextrose 50% 50 Ml Syringe) 25 - 50 ml IV UD PRN; Protocol PRN Reason: Hypoglycemia Protocol Stop: 10/01/23 08:16 Enalapril Maleate (Enalapril Maleate 10 Mg Tab) 20 mg PO QAM [facility] Stop: 10/01/23 08:59 Last Admin: 09/02/23 09:24 Dose: 20 mg Glucagon (Glucagon For Inj 1 Mg Vial) 1 mg SQ UD PRN; Protocol PRN Reason: Hypoglycemia Protocol Stop: 10/01/23 08:16 Glucose (Glucose 40% Gel 15 Gm Tube) 15 - 30 gm PO UD PRN; Protocol PRN Reason: Hypoglycemia Protocol Stop: 10/01/23 08:16 Glucose (Glucose 10 Tab/Tube) 4 - 8 tab PO UD PRN; Protocol PRN Reason: Hypoglycemia Treatment Stop: 10/01/23 08:16 Insulin Aspart (Insulin Aspart Per Unit Charge) 0 units SC ACHS [facility] Stop: 10/01/23 08:16 Last Admin: 09/02/23 11:56 Dose: Not Given Labetalol HCl (Labetalol Hcl Iv 5 Mg/Ml 20ml) 10 mg IV Q4H PRN PRN Reason: Hypertension Stop: 10/01/23 08:16 Metoprolol Tartrate (Metoprolol Tartrate 50 Mg Tab) 50 mg PO BID [facility] Stop: 10/01/23 08:59 Last Admin: 09/02/23 09:24 Dose: 50 mg Miscellaneous (Carbohydrates For Hypoglycemia ) 15 - 30 gm PO UD PRN PRN Reason: Hypoglycemia Protocol Stop: 10/01/23 08:16 Nitroglycerin (Nitroglycerin Sl 0.4 Mg/Tab Tab) 0.4 mg SL Q5M PRN PRN Reason: Chest Pain Stop: 10/01/23 08:16 Ondansetron HCl (Ondansetron Inj 2 Mg/Ml 2 Ml Vial) 4 mg IV Q6H PRN PRN Reason: Nausea Stop: 10/01/23 08:16
--- NOTE | 2023-09-03 07:48 | Discharge Summary ---
Date of Service September 03, 2023 Admission HPI Per Admitting Provider 42-year-old male with past medical history significant for prediabetes, obstructive sleep apnea noncompliant with CPAP, hypertension, morbid obesity, generalized anxiety disorder ran out of his blood pressure medication for last 2 weeks and came to the ER because of elevated blood pressure and headaches. Patient was in the ER earlier with headaches and elevated blood pressure and not taking his blood pressure medication for last 2 weeks. 10 mg of p.o. amlodipine was given and his home medication prescription of Benazepril and amlodipine 5/20 mg was sent to pharmacyhis headache improved and his CT head was okay was sent home. After going home the headaches came back and his blood pressure still high so he came back. Currently received a dose of IV hydralazine and his blood pressure improved and headaches improved. Resting comfortably. Incidentally also found to have rhinovirus infection, but patient denies any symptoms. No blurred visions, no earache, no runny nose, no sore throat, no cough, no fevers. No body aches. Appetite is okay. No chest pain or shortness of breath. No nausea. No abdominal pain. Normal bowel and bladder movements. Current resting comfortably. Past med history. As mentioned above. Past surgical history. Dental surgery. Inguinal hernia repair. Umbilical hernia repair. Vasectomy. Social history. . No smoking. Alcohol rarely. No drug use. Family history. Mother has arthritis. Glaucoma. Father has hypertension. Stroke. Admission Exam Per Admitting Provider Physical Exam: General- Not in distress Head- atraumatic Eyes- PERRL. ENT- oropharynx clear Neck- supple, no JVD. Lungs- clear to auscultation no wheezing or crackles. Heart- regular rate and rhythm; no murmur, no gallop. Abdomen- normal bowel sounds, soft, nontender, no distension. Extremities- no pretibial edema, no erythema seen. Neuro- alert, oriented PERRL, no facial palsy; no dysarthria; moves extremities. Principal Diagnosis Hypertensive urgency, headache, obstructive sleep apnea, Discharge Exam Lying in bed without any acute distress Constitutional well developed, well nourished, + ill appearing and + obese Eyes PERRL, conjunctivae normal, anicteric sclerae ENMT external ear and nose normal, oropharynx normal Neck trachea midline, no thyromegaly Respiratory no respiratory distress Auscultation: lungs clear to auscultation bilaterally Cardiovascular Rate/Rhythm: regular rate and regular rhythm; not tachycardic Heart Sounds: normal S1 and normal S2; no murmur Extremities: no edema Gastrointestinal (Abdomen) Inspection/Auscultation: normal bowel sounds; abdomen not distended Percussion/Palpation: abdomen soft; abdomen nontender Neurologic normal touch/pain/proprioception and moves all extremities; no focal motor deficits Psychiatric A+Ox3, euthymic affect Lymphatic no cervical or axillary lymphadenopathy Discharge Data Allergies Allergy/AdvReac Type Severity Reaction Status Date / Time grass pollen-perennial rye, Allergy Intermediate hives Verified 08/31/23 20:43 standar Consultations 09/01/23 02:47 ED Decision to Admit Stat Hospital Course (1) Hypertensive urgency: 42-year-old male with past medical history significant for prediabetes, obstructive sleep apnea noncompliant with CPAP, hypertension, morbid obesity, generalized anxiety disorder ran out of his blood pressure medication for last 2 weeks and came to the ER because of elevated blood pressure and headaches. Patient was in the ER earlier with headaches and elevated blood pressure and not taking his blood pressure medication for last 2 weeks. 10 mg of p.o. amlodipine was given and his home medication prescription of Benazepril and amlodipine 5/20 mg was sent to pharmacyhis headache improved and his CT head was okay was sent home. After going home the headaches came back and his blood pressure still high so he came back. Currently received a dose of IV hydralazine and his blood pressure improved and headaches improved. Resting comfortably. Incidentally also found to have rhinovirus infection, but patient denies any symptoms. No blurred visions, no earache, no runny nose, no sore throat, no cough, no fevers. No body aches. Appetite is okay. No chest pain or shortness of breath. No nausea. No abdominal pain. Normal bowel and bladder movements. Current resting comfortably. Hypertensive urgency Not take his home medications since last 2 weeks as he ran out of his prescription Will start this home medication benazepril/amlodipine IV labetalol as needed Echo of the heart showed-constricted LVH without any wall motion abnormalities, hyperdynamic ventricle with EF more than 70%, RV is normal size and function there is no significant valvular pathologies and grade 1 diastolic dysfunction Blood pressure noted to be very high and intravenous metoprolol 5 mg was given and Lopressor 50 mg twice daily was started His blood pressure has been improving as of this afternoon and the symptoms are getting better Blood pressure remains stable He will be discharged home this afternoon with current medications of blood pressure Headaches Secondary to very high blood pressure resolved subsequently Denies any more headache Obstructive sleep apnea Could not tolerate CPAP Needs follow-up Prediabetes Hold metformin HbA1c levels-mildly elevated at 6.4 Has been on sliding scale Morbid obesity Needs counseling Follow-up with nutrition and PCP Hyperlipidemia on statin DVT prophylaxis SCDs for now disposition med/telemetry full code Will be discharged home this afternoon Total Time Total Time Spent Total Time Spent (In Minutes): 35 minutes Discharge Plan Discharge Items Patient Disposition: Home - Self-Care Reason For Visit: htn urgency,heradache Discharge Diagnosis: Hypertensive urgency, headache, obstructive sleep apnea, Condition on Discharge: Good Activity: Resume your previous activity Non-emergency contact: Primary Care Provider Call non-emergency contact if: you have any medication questions and your symptoms worsen Follow-up/Referrals: Nilson Morales MD [Primary Care Provider] - (Your doctor's office will call you with an appointment within 7 days) Diet: Carb Consistent or DM2, Heart Healthy and Low Sodium (2gm) Addtl Attending Provider Instructions: Please take precautions to avoid falls Take your medications as advised Please have follow-up appointments with your healthcare provider You will need to see a nutrition helper for your weight management Continue CPAP Pending Studies at Discharge: No Stand-Alone Forms: My [employer], Smoking Cessation Medications and DC Order Prescriptions: New metoprolol succinate 50 mg tablet extended release 24 hr 50 mg PO BID Qty: 60 0RF Continued atorvastatin 20 mg tablet 20 mg PO HS amlodipine-benazepril 5-20 mg capsule 1 cap PO DAILY Qty: 30 0RF No Action metformin 500 mg tablet extended release 24 hr 1,000 mg PO HS Discharge Orders: Discharge Order (Routine); Ordered 09/02/23 Ordered By: Danny Borrego/Other Patient Handouts: Prediabetes, 5 Steps for Eating Healthier Admission Data Admit Date/Time: 09/01/23 05:09 Attending Provider: Danny Shea Admit Provider: Cornell Motley Primary Care Provider: Nilson Morales Other Providers: Cornell Motley Other Interventions: Discharge Summary Assessment (RN) Last Done: 09/02/23 12:58
== END 2023-09-02 13:33 | disposition home or self-care (01) | DRG 305 ==
LOC: ED 02:29 → INTOOBSV 05:09 → EDINP 05:09 → 2W 08:17